=== PATIENT | male | born 1970 | race Caucasian/White ===

== ENCOUNTER 2016-10-15 09:00 | Emergency (ER) | payer OTHER ==
[~2016-10-15] VITALS: Ht 185.4 cm; Wt 69.6 kg
[~2016-10-15 09:00] MED LIST: BACTRIM,SEPT1 TABLET PO; CLEOCIN300 MG PO; LORCET; Lopressor PO; MORPHINE SULFAT30 M2 PO; NAPROSYN500 MG PO; OXYCODONE-APAP1 EACH PO; PAXIL10 MG PO; PAXIL40 MG PO; PERCOCET 10-321 EACH PO; PERCOCET 10/1 TABLET PO; PERCOCET 5/31 TABLET PO; PERIDEX1 ML MM; PRINIVIL20 MG PO; SEROQUEL100 MG PO; SEROQUEL50 MG PO; TRICOR; TRICOR145 MG PO; ULTRACET1 TABLET PO; WELLBUTRIN SR150 MG PO; WELLBUTRIN75 MG PO; [UNRECOGNIZED DRUG - OTHER] PO
[2016-10-15] MEDS ORDERED: MOTRIN800 MG PO (09:17)
[2016-10-15] MEDS ORDERED: BACTRIM,SEPT1 TABLET PO (09:17)
[2016-10-15 10:55] VITALS: BP 114/69
== END 2016-10-15 10:55 | disposition home or self-care (01) ==
LOC: EME 09:00
DX: L02.416 Cutaneous abscess of left lower limb (principal); M25.562 Pain in left knee; Z89.512 Acquired absence of left leg below knee; G89.29 Other chronic pain; Z79.891 Long term (current) use of opiate analgesic; F17.200 Nicotine dependence, unspecified, uncomplicated
CPT/HCPCS: 73564; 99281; 99283

== ENCOUNTER 2016-11-23 04:31 | Emergency (ER) | payer OTHER ==
[~2016-11-23] VITALS: Ht 185.4 cm; Wt 62.3 kg
[~2016-11-23 04:31] MED LIST changes: +MOTRIN800 MG PO
[2016-11-23] MEDS ORDERED: BACTRIM,SEPT1 TABLET PO (05:09)
[2016-11-23] MEDS ORDERED: NORCO 5/3251 TABLET PO (05:09)
[2016-11-23 05:44] VITALS: BP 142/90
== END 2016-11-23 05:44 | disposition home or self-care (01) ==
LOC: EME → EDBD 04:31 → EME 05:44
DX: L02.416 Cutaneous abscess of left lower limb (principal); Z89.512 Acquired absence of left leg below knee; G89.29 Other chronic pain; Z90.5 Acquired absence of kidney; F17.200 Nicotine dependence, unspecified, uncomplicated; Z88.6 Allergy status to analgesic agent
CPT/HCPCS: 99281; 99284